=== PATIENT | male | born 1950 | race Caucasian/White ===

== ENCOUNTER 2017-07-12 12:47 | Inpatient (IN) | payer MEDICARE ==
[2017-07-12] VITALS (7 sets, daily range): BP systolic 104–138; BP diastolic 70–89; PULSE 103–150; RESP 13–24; TEMP 98.2–98.7; O2SAT 96–100
[~2017-07-12 12:47] MED LIST: LIDOCAINE HCL 1% PF 5 ML SYRINGE OTHER ONE; PROPOFOL 200 MG/20 ML AMP IV ONE
[2017-07-12] MEDS ORDERED: IOHEXOL 350 MG/ML 10 ML VIAL (for RAD DIAG) IVCONTRAST ONE (12:48)
--- NOTE | 2017-07-12 14:00 | PD ---
HPI Chief Complaint: GI Complaint Time Seen by Provider: 13:57 Travel History International Travel<30 days: No Contact w/Intl Traveler<30days: No Traveled to known affect area: No History of Present Illness HPI 67-year-old male presents emergency department at the request of his physician concern for "internal bleeding". Patient states that he has had colonoscopy and endoscopy to evaluate for his anemia and black stools but "nothing was found ". States this occurred 2 months ago. Today's complaining of fatigue, shortness of breath on exertion. Denies fever, chills, chest pain, abdominal pain. Patient does not take any blood thinners. Does not take aspirin. Says he has a history of high blood pressure. Says he has been n.p.o. since lunch yesterday. Denies any other medical issues medication use. He does not take iron daily. PFSH Social History Tobacco Use: No Allergies-Medications (Allergen,Severity, Reaction): Coded Allergies: No Known Allergies (Unverified , 07/12/17) Review of Systems Except as stated in HPI: all other systems reviewed are Neg Physical Exam Narrative GENERAL: WD, WN, fatigued SKIN: Focused skin assessment warm/dry. HEAD: Atraumatic. Normocephalic. EYES: Pupils equal and round. No scleral icterus. No injection or drainage. ENT: No nasal bleeding or discharge. Mucous membranes pink and moist. NECK: Trachea midline. No JVD. CARDIOVASCULAR: Regular rate and rhythm. No murmur appreciated. RESPIRATORY: No accessory muscle use. Clear to auscultation. Breath sounds equal bilaterally. GASTROINTESTINAL: Abdomen soft, non-tender, nondistended. Mild tenderness palpation of the right abdominal region, no masses or organomegaly. MUSCULOSKELETAL: No obvious deformities. No clubbing. No cyanosis. No edema. NEUROLOGICAL: Awake and alert. No obvious cranial nerve deficits. Motor grossly within normal limits. Normal speech. PSYCHIATRIC: Appropriate mood and affect; insight and judgment normal. Data Data Last Documented VS Vital Signs Date Time Temp Pulse Resp B/P (MAP) Pulse Ox O2 Delivery O2 Flow Rate FiO2 07/12/17 18:19 107 17 136/89 (105) 96 Room Air 07/12/17 13:21 98.2 Orders Orders Complete Blood Count With Diff (07/12/17 13:24) Comprehensive Metabolic Panel (07/12/17 13:24) Prothrombin Time / Inr (Pt) (07/12/17 13:24) Act Partial Throm Time (Ptt) (07/12/17 13:24) Ecg Monitoring (07/12/17 13:24) Orthostatic Vital Signs (07/12/17 13:24) Oximetry (07/12/17 13:24) Oxygen Administration (07/12/17 13:24) Iv Access Insert/Monitor (07/12/17 13:24) Type And Screen (07/12/17 13:24) Electrocardiogram (07/12/17 ) Lipase (07/12/17 13:57) Ct Abd/Pel W Iv Contrast(Rout) (07/12/17 ) B-Type Natriuretic Peptide (07/12/17 14:59) Sodium Chloride 0.9% Flush (Ns Flush) (07/12/17 15:00) Iohexol 350 Inj (Omnipaque 350 Inj) (07/12/17 12:48) Ckmb (Isoenzyme) Profile (07/12/17 14:00) Troponin I (07/12/17 14:00) CKMB (07/12/17 14:00) CKMB% (07/12/17 14:00) Sodium Chlor 0.9% 1000 Ml Inj (Ns 1000 M (07/12/17 16:15) Sodium Chlor 0.9% 1000 Ml Inj (Ns 1000 M (07/12/17 16:15) Electrocardiogram (07/12/17 16:21) Hgb & Hct (07/12/17 17:23) Red Blood Cells (Rbc) (07/12/17 18:01) Blood Product Administration (07/12/17 18:01) Sodium Chlor 0.9% 250 Ml Inj (Ns 250 Ml (07/12/17 18:15) Consult Gastroenterology (07/12/17 ) Pantoprazole Inj (Protonix Inj) (07/12/17 18:15) (Hub Use Only)Inp Phy Cons/Ref (07/12/17 ) Admit Order (Ed Use Only) (07/12/17 18:47) Labs Laboratory Tests Test 07/12/17 14:00 07/12/17 17:32 White Blood Count 9.6 TH/MM3 Red Blood Count 3.26 MIL/MM3 Hemoglobin 9.9 GM/DL 6.5 GM/DL Hematocrit 27.6 % 18.2 % Mean Corpuscular Volume 84.8 FL Mean Corpuscular Hemoglobin 30.2 PG Mean Corpuscular Hemoglobin Concent 35.7 % Red Cell Distribution Width 13.1 % Platelet Count 249 TH/MM3 Mean Platelet Volume 9.6 FL Neutrophils (%) (Auto) 68.6 % Lymphocytes (%) (Auto) 24.4 % Monocytes (%) (Auto) 5.8 % Eosinophils (%) (Auto) 0.4 % Basophils (%) (Auto) 0.8 % Neutrophils # (Auto) 6.6 TH/MM3 Lymphocytes # (Auto) 2.3 TH/MM3 Monocytes # (Auto) 0.6 TH/MM3 Eosinophils # (Auto) 0.0 TH/MM3 Basophils # (Auto) 0.1 TH/MM3 CBC Comment DIFF FINAL Differential Comment Prothrombin Time 11.6 SEC Prothromb Time International Ratio 1.1 RATIO Activated Partial Thromboplast Time 34.7 SEC Blood Urea Nitrogen 38 MG/DL Creatinine 1.26 MG/DL Random Glucose 146 MG/DL Total Protein 7.1 GM/DL Albumin 3.7 GM/DL Calcium Level 8.0 MG/DL Alkaline Phosphatase 42 U/L Aspartate Amino Transf (AST/SGOT) 15 U/L Alanine Aminotransferase (ALT/SGPT) 16 U/L Total Bilirubin 0.3 MG/DL Sodium Level 139 MEQ/L Potassium Level 4.5 MEQ/L Chloride Level 105 MEQ/L Carbon Dioxide Level 24.9 MEQ/L Anion Gap 9 MEQ/L Estimat Glomerular Filtration Rate 57 ML/MIN Total Creatine Kinase 108 U/L Creatine Kinase MB 1.4 NG/ML Troponin I LESS THAN 0.02 NG/ML B-Type Natriuretic Peptide 4 PG/ML Lipase 110 U/L MDM Medical Decision Making Medical Screen Exam Complete: Yes Emergency Medical Condition: Yes Differential Diagnosis symptomatic anemia, NSTEMI, unstable angina Narrative Course 67-year-old male presents emergency department at the request of his physician concern for "internal bleeding". Patient states that he has had colonoscopy and endoscopy to evaluate for his anemia and black stools but "nothing was found ". States this occurred 2 months ago. Today's complaining of fatigue, shortness of breath on exertion. Denies fever, chills, chest pain, abdominal pain. Patient does not take any blood thinners. Does not take aspirin. Says he has a history of high blood pressure. Says he has been n.p.o. since lunch yesterday. Denies any other medical issues medication use. He does not take iron daily. Patient denies history of cardiac or pulmonary issues. Patient was placed on hypertension medications approximately 8 years ago for mild hypertension. Vital signs HR 110, BP 136/86, SaO2 98.2 RA Physical exam findings demonstrate a WD, WN 67y male demonstrating SOB with exertion. Abdomen- soft, tender to the right abdomen without rebound tenderness or masses. No CVA tenderness. Last Impressions Abdomen/Pelvis CT 07/12/17 0000 Signed Impressions: Service Date/Time: , July 12, 2017 15:08 - CONCLUSION: 1. A few subcentimeter benign renal cyst. 2. Otherwise, unremarkable exam for patient's age. Renny Egan MD Patient's labs brought from home from May 14, 2017 show H&H 9.5/28.2, RBC 3.21. 1615 Orthostatics positive- CLEM Caraballo witnessed a tachycardic rate (156) upon pt standing and brought to my attention immediately, 2L NS IVF initiated. Will repeat H&H after IVF and determine need for transfusion. Repeat EKG shows sinus tachycardia rate of 104. Dr. العلي was also notified and he evaluated the patient. After discussing the possibility of transfusions, pt was rather reluctant to allow this. Advised that he should reconsider but that we would evaluated further once repeat labs returned. Initial H&H 9.9/27.6. after 2L IVF 6.5/18.2. 2U PRBCs initiated. Pt agreed to transfusion after discussing risks vs benefits. Dr. العلي discussed with Dr. Delgadillo and is currently evaluating patient in the ED. He believes that the problem may be in the upper GI portion as he had an EGD and colonoscopy 2 months ago. Plan to have an EGD in the morning, per Dr. Delgadillo. Pt to be admitted for symptomatic anemia to Dr. Barroso. [facility] Point of Care Internal Pos. & Neg. Controls: Passed Fecal Specimen Occult Blood: Positive Diagnosis Primary Impression: Symptomatic anemia Admitting Information Admitting Physician Requests: Admit Condition: Stable Oneyda Leal Jul 12, 2017 14:00
[2017-07-12 14:23] LABS: AUTOMATED NEUTROPHIL # 6.6 TH/MM3 (1.8-7.7); BASOPHIL # 0.1 TH/MM3 (0-0.2); BASOPHIL % 0.8 % (0.0-2.0); EOSINOPHIL % 0.4 % (0.0-4.0); HEMATOCRIT 27.6 % (39.0-51.0); HEMOGLOBIN 9.9 GM/DL (13.0-17.0); LYMPH % 24.4 % (9.0-44.0); LYMPHOCYTE # 2.3 TH/MM3 (1.0-4.8); MEAN CELL VOLUME 84.8 FL (80.0-100.0); MEAN CORPUSCULAR HEMOGLOBIN 30.2 PG (27.0-34.0); MEAN CORPUSCULAR HGB CONC 35.7 % (32.0-36.0); MEAN PLATELET VOLUME 9.6 FL (7.0-11.0); MONO % 5.8 % (0.0-8.0); MONOCYTE # 0.6 TH/MM3 (0-0.9); NEUT % 68.6 % (16.0-70.0); PLATELET COUNT 249 TH/MM3 (150-450); RED BLOOD COUNT 3.26 MIL/MM3 (4.50-5.90); RED CELL DISTRIBUTION WIDTH 13.1 % (11.6-17.2); WHITE BLOOD COUNT 9.6 TH/MM3 (4.0-11.0)
[2017-07-12 14:33] LABS: INTERNATIONAL NORMALIZED RATIO 1.1 RATIO; PROTHROMBIN TIME - PATIENT 11.6 SEC (9.8-11.6)
[2017-07-12 14:41] LABS: ALBUMIN 3.7 GM/DL (3.4-5.0); ALT (GPT) 16 U/L (12-78); AST (GOT) 15 U/L (15-37); BICARBONATE 24.9 MEQ/L (21.0-32.0); BLOOD UREA NITROGEN 38 MG/DL (7-18); CHLORIDE 105 MEQ/L (98-107); CREATININE 1.26 MG/DL (0.60-1.30); GLOMERULAR FILTRATION RATE 57 ML/MIN (>89); GLUCOSE,RANDOM 146 MG/DL (74-106); SODIUM (NA) 139 MEQ/L (136-145)
[2017-07-12 14:43] LABS: ALKALINE PHOSPHATASE 42 U/L (45-117); TOTAL BILIRUBIN ADULT 0.3 MG/DL (0.2-1.0); TOTAL PROTEIN 7.1 GM/DL (6.4-8.2)
[2017-07-12] MEDS ORDERED: SODIUM CHLORIDE 0.9% FLUSH 10 ML FLUSH IVF PRN (15:00)
--- NOTE | 2017-07-12 15:31 | RADRPT ---
EXAM DATE/TIME: 07/12/2017 15:08 [facility] COMPARISON: No previous studies available for comparison. INDICATIONS : History of GI bleed and anemia. IV CONTRAST: 95 cc Omnipaque 350 (iohexol) IV ORAL CONTRAST: No oral contrast ingested. RADIATION DOSE: 8.45 CTDIvol (mGy) MEDICAL HISTORY : None SURGICAL HISTORY : None. ENCOUNTER: Initial ACUITY: 1 day PAIN SCALE: 0/10 LOCATION: abdomen TECHNIQUE: Volumetric scanning of the abdomen and pelvis was performed. Using automated exposure control and ad justment of the mA and/or kV according to patient size, radiation dose was kept as low as reasonably achievable to obtain optimal diagnostic quality images. DICOM format image data is available electro nically for review and comparison. FINDINGS: LOWER LUNGS: Minimal reticulonodular infiltrate right lung base. Left lung base is clear. LIVER: Homogeneous density without lesion. There is no dilation of the biliary tree. No calcified gallston es. SPLEEN: Normal size without lesion. PANCREAS: Within normal limits. KIDNEYS: Normal in size and shape. There is no mass, stone or hydronephrosis. A few subcentimeter benign cyst s in the right kidney. ADRENAL GLANDS: Within normal limits. VASCULAR: There is no aortic aneurysm. BOWEL/MESENTERY: The stomach, small bowel, and colon demonstrate no acute abnormality. There is no free intraperitone al air or fluid. The appendix is unremarkable. There is stool throughout the colon. No inflammatory c hanges. ABDOMINAL WALL: Within normal limits. RETROPERITONEUM: There is no lymphadenopathy. BLADDER: No wall thickening or mass. REPRODUCTIVE: The prostate gland measures 5.6 cm. INGUINAL: There is no lymphadenopathy or hernia. MUSCULOSKELETAL: Within normal limits for patient age. CONCLUSION: 1. A few subcentimeter benign renal cyst. 2. Otherwise, unremarkable exam for patient's age. Renny Egan MD on July 12, 2017 at 15:27 Board Certified Radiologist. This report was verified electronically.
[2017-07-12 16:12] LABS: TROPONIN I LESS THAN 0.02 NG/ML (0.02-0.05)
[2017-07-12] MEDS ORDERED: SODIUM CHLOR 0.9% 1000 ML INJ 1,000 ML IV ONE ×2 (16:15)
--- NOTE | 2017-07-12 16:19 | PD ---
Data Data Last Documented VS Vital Signs Date Time Temp Pulse Resp B/P (MAP) Pulse Ox O2 Delivery O2 Flow Rate FiO2 07/12/17 18:19 107 17 136/89 (105) 96 Room Air 07/12/17 13:21 98.2 Orders Orders Complete Blood Count With Diff (07/12/17 13:24) Comprehensive Metabolic Panel (07/12/17 13:24) Prothrombin Time / Inr (Pt) (07/12/17 13:24) Act Partial Throm Time (Ptt) (07/12/17 13:24) Ecg Monitoring (07/12/17 13:24) Orthostatic Vital Signs (07/12/17 13:24) Oximetry (07/12/17 13:24) Oxygen Administration (07/12/17 13:24) Iv Access Insert/Monitor (07/12/17 13:24) Type And Screen (07/12/17 13:24) Electrocardiogram (07/12/17 ) Lipase (07/12/17 13:57) Ct Abd/Pel W Iv Contrast(Rout) (07/12/17 ) B-Type Natriuretic Peptide (07/12/17 14:59) Sodium Chloride 0.9% Flush (Ns Flush) (07/12/17 15:00) Iohexol 350 Inj (Omnipaque 350 Inj) (07/12/17 12:48) Ckmb (Isoenzyme) Profile (07/12/17 14:00) Troponin I (07/12/17 14:00) CKMB (07/12/17 14:00) CKMB% (07/12/17 14:00) Sodium Chlor 0.9% 1000 Ml Inj (Ns 1000 M (07/12/17 16:15) Sodium Chlor 0.9% 1000 Ml Inj (Ns 1000 M (07/12/17 16:15) Electrocardiogram (07/12/17 16:21) Hgb & Hct (07/12/17 17:23) Red Blood Cells (Rbc) (07/12/17 18:01) Blood Product Administration (07/12/17 18:01) Sodium Chlor 0.9% 250 Ml Inj (Ns 250 Ml (07/12/17 18:15) Consult Gastroenterology (07/12/17 ) Pantoprazole Inj (Protonix Inj) (07/12/17 18:15) (Hub Use Only)Inp Phy Cons/Ref (07/12/17 ) Admit Order (Ed Use Only) (07/12/17 18:47) Labs Laboratory Tests Test 07/12/17 14:00 07/12/17 17:32 White Blood Count 9.6 TH/MM3 Red Blood Count 3.26 MIL/MM3 Hemoglobin 9.9 GM/DL 6.5 GM/DL Hematocrit 27.6 % 18.2 % Mean Corpuscular Volume 84.8 FL Mean Corpuscular Hemoglobin 30.2 PG Mean Corpuscular Hemoglobin Concent 35.7 % Red Cell Distribution Width 13.1 % Platelet Count 249 TH/MM3 Mean Platelet Volume 9.6 FL Neutrophils (%) (Auto) 68.6 % Lymphocytes (%) (Auto) 24.4 % Monocytes (%) (Auto) 5.8 % Eosinophils (%) (Auto) 0.4 % Basophils (%) (Auto) 0.8 % Neutrophils # (Auto) 6.6 TH/MM3 Lymphocytes # (Auto) 2.3 TH/MM3 Monocytes # (Auto) 0.6 TH/MM3 Eosinophils # (Auto) 0.0 TH/MM3 Basophils # (Auto) 0.1 TH/MM3 CBC Comment DIFF FINAL Differential Comment Prothrombin Time 11.6 SEC Prothromb Time International Ratio 1.1 RATIO Activated Partial Thromboplast Time 34.7 SEC Blood Urea Nitrogen 38 MG/DL Creatinine 1.26 MG/DL Random Glucose 146 MG/DL Total Protein 7.1 GM/DL Albumin 3.7 GM/DL Calcium Level 8.0 MG/DL Alkaline Phosphatase 42 U/L Aspartate Amino Transf (AST/SGOT) 15 U/L Alanine Aminotransferase (ALT/SGPT) 16 U/L Total Bilirubin 0.3 MG/DL Sodium Level 139 MEQ/L Potassium Level 4.5 MEQ/L Chloride Level 105 MEQ/L Carbon Dioxide Level 24.9 MEQ/L Anion Gap 9 MEQ/L Estimat Glomerular Filtration Rate 57 ML/MIN Total Creatine Kinase 108 U/L Creatine Kinase MB 1.4 NG/ML Troponin I LESS THAN 0.02 NG/ML B-Type Natriuretic Peptide 4 PG/ML Lipase 110 U/L MDM Supervised Visit with PATEL: Yes Narrative Course I, Dr. العلي, have reviewed the advance practice practitioner's documentation and am in agreement, met with the patient face to face, made the diagnosis, and the medical decision making was done by me. *My assessment and Findings: Patient seen and examined by me in addition to Oneyda Elvis. Patient fairly tachycardic and when he stood to go use the bathroom became even more tachycardic into the 150s, this is orthostatic hypotension, had significant melena from his rectum according to MsLiliam Leal and his initial H&H was 9.7. Assuming acute contraction the patient was bolused 2 L normal saline and his H&H was repeated and is now 6.5. After discussion with him I highly recommended to him to have blood transfusion and he is agreeable. 2 units PRBCs been ordered, he was discussed by me with Dr. Delgadillo who is planning procedure in the morning. Recommends Protonix. Discussed with Dr. Graham for admission. Diagnosis Primary Impression: Symptomatic anemia Admitting Information Admitting Physician Requests: Admit Scripts Pantoprazole (Protonix) 40 Mg Tab 40 MG PO BID for Ulcer Prevention, #60 TAB 3 Refills Prov: Eben Graham MD 07/14/17 Condition: Evangelista José MD Jul 12, 2017 16:19
[2017-07-12 18:01] LABS: HEMATOCRIT 18.2 % (39.0-51.0); HEMOGLOBIN 6.5 GM/DL (13.0-17.0)
[2017-07-12] MEDS ORDERED: PANTOPRAZOLE SODIUM 40 MG VIAL IV PUSH ONE (18:15)
[2017-07-12] MEDS ORDERED: SODIUM CHLOR 0.9% 250 ML INJ 250 ML IV ONE (18:15)
--- NOTE | 2017-07-12 19:14 | HHI.HP ---
HPI Service [facility] Hospitalists Primary Care Physician Glenn Coronel, DO Admission Diagnosis symptomatic anemia Chief Complaint: sob/black stool Travel History International Travel<30 Days: No Contact w/Intl Traveler <30 Da: No Traveled to Known Affected Are: No History of Present Illness Pt is 67 yo male with htn presenting with black stool, dizziness, sob with exertion. 2 months ago he had black stool and had egd/colonoscopy with advanced GI. Pt says no bleeding was found and he was given omeprazole with resolution of black stool in about 3 days. he stopped the medication. He now has more black stool, no abdomen pain, but dizzy and sob with exertion. He passed out 2 months ago and today nearly passed out again. he is very symptomatic and gets very tachycardic and dizzy just walking to [place]. Denies nsaid use and no heavy etoh. Review of Systems Other sob/dizzy black stool Past Family Social History Past Medical History htn egd/colonoscopy 2m ago for melena Reported Medications lisinipril 10mg po daily otc iron Allergies: Coded Allergies: No Known Allergies (Unverified , 07/12/17) Family History nc Social History rare etoh no tob Physical Exam Vital Signs heart reg lung cta abd s/nt/nabs ext no edema no bruit Vital Signs Date Time Temp Pulse Resp B/P (MAP) Pulse Ox O2 Delivery O2 Flow Rate FiO2 07/12/17 18:19 107 17 136/89 (105) 96 Room Air 07/12/17 16:17 150 24 138/84 (102) 100 Room Air 07/12/17 14:25 98 07/12/17 14:25 98 Room Air 07/12/17 13:21 98.2 138 20 136/86 (103) 100 Laboratory Laboratory Tests Test 07/12/17 14:00 07/12/17 17:32 White Blood Count 9.6 Red Blood Count 3.26 Hemoglobin 9.9 6.5 Hematocrit 27.6 18.2 Mean Corpuscular Volume 84.8 Mean Corpuscular Hemoglobin 30.2 Mean Corpuscular Hemoglobin Concent 35.7 Red Cell Distribution Width 13.1 Platelet Count 249 Mean Platelet Volume 9.6 Neutrophils (%) (Auto) 68.6 Lymphocytes (%) (Auto) 24.4 Monocytes (%) (Auto) 5.8 Eosinophils (%) (Auto) 0.4 Basophils (%) (Auto) 0.8 Neutrophils # (Auto) 6.6 Lymphocytes # (Auto) 2.3 Monocytes # (Auto) 0.6 Eosinophils # (Auto) 0.0 Basophils # (Auto) 0.1 CBC Comment DIFF FINAL Differential Comment Prothrombin Time 11.6 Prothromb Time International Ratio 1.1 Activated Partial Thromboplast Time 34.7 Blood Urea Nitrogen 38 Creatinine 1.26 Random Glucose 146 Total Protein 7.1 Albumin 3.7 Calcium Level 8.0 Alkaline Phosphatase 42 Aspartate Amino Transf (AST/SGOT) 15 Alanine Aminotransferase (ALT/SGPT) 16 Total Bilirubin 0.3 Sodium Level 139 Potassium Level 4.5 Chloride Level 105 Carbon Dioxide Level 24.9 Anion Gap 9 Estimat Glomerular Filtration Rate 57 Total Creatine Kinase 108 Creatine Kinase MB 1.4 Troponin I LESS THAN 0.02 B-Type Natriuretic Peptide 4 Lipase 110 Result Diagram: 07/12/17 1732 07/12/17 1400 Caprini VTE Risk Assessment Caprini VTE Risk Assessment: Mod/High Risk (score >= 2) Caprini Risk Assessment Model Point Value = 1 Point Value = 2 Point Value = 3 Point Value = 5 Age 41-60 Minor surgery BMI > 25 kg/m2 Swollen legs Varicose veins or History of unexplained or recurrent spontaneous Oral contraceptives or hormone replacement Sepsis (< 1 month) Serious lung disease, including pneumonia (< 1 month) Abnormal pulmonary function Acute myocardial infarction Congestive heart failure (< 1 month) History of inflammatory bowel disease Medical patient at bed rest Age 61-74 Arthroscopic surgery Major open surgery (> 45 min) Laparoscopic surgery (> 45 min) Malignancy Confined to bed (> 72 hours) Immobilizing plaster cast Central venous access Age >= 75 History of VTE Family history of VTE Factor V Leiden Prothrombin [id number] Lupus anticoagulant Anticardiolipin antibodies Elevated serum homocysteine Heparin-induced thrombocytopenia Other congenital or acquired thrombophilia Stroke (< 1 month) Elective arthroplasty Hip, pelvis, or leg fracture Acute spinal cord injury (< 1 month) Prophylaxis Regimen Total Risk Factor Score Risk Level Prophylaxis Regimen 0-1 Low Early ambulation 2 Moderate Order ONE of the following: *Sequential Compression Device (SCD) *Heparin 5000 units SQ BID 3-4 Higher Order ONE of the following medications: *Heparin 5000 units SQ TID *Enoxaparin/Lovenox 40 mg SQ daily (WT < 150 kg, CrCl > 30 mL/min) *Enoxaparin/Lovenox 30 mg SQ daily (WT < 150 kg, CrCl > 10-29 mL/min) *Enoxaparin/Lovenox 30 mg SQ BID (WT < 150 kg, CrCl > 30 mL/min) AND/OR *Sequential Compression Device (SCD) 5 or more Highest Order ONE of the following medications: *Heparin 5000 units SQ TID (Preferred with Epidurals) *Enoxaparin/Lovenox 40 mg SQ daily (WT < 150 kg, CrCl > 30 mL/min) *Enoxaparin/Lovenox 30 mg SQ daily (WT < 150 kg, CrCl > 10-29 mL/min) *Enoxaparin/Lovenox 30 mg SQ BID (WT < 150 kg, CrCl > 30 mL/min) AND *Sequential Compression Device (SCD) Assessment and Plan Problem List: (1) Acute GI bleeding ICD Codes: K92.2 - Gastrointestinal hemorrhage, unspecified Status: Acute Plan: 1. acute gib with symptomatic blood loss anemia. melena concern for ugib hgb 6 severe sinus tach, dizziness, meier, near syncope with exertion egd/colonoscopy 2m ago no clear etiology denies nsaids or etoh transfuse 2 units blood keep on tele oob with assist only scd's ppi GI consulted. EGD planned. hold bp med (2) Symptomatic anemia ICD Codes: D64.9 - Anemia, unspecified Status: Acute (3) Acute blood loss anemia ICD Codes: D62 - Acute posthemorrhagic anemia Status: Acute (4) HTN (hypertension) ICD Codes: I10 - Essential (primary) hypertension Status: Chronic Eben Graham MD Jul 12, 2017 19:14
--- NOTE | 2017-07-12 23:49 | EKG ---
Date Performed: 07/12/2017 Time Performed: 16:21:42 PTAGE: 67 years EKG: SINUS TACHYCARDIA NONSPECIFIC T-WAVE ABNORMALITY ABNORMAL RHYTHM ECG INTERPRETATION BASED O N A DEFAULT AGE OF 40 YEARS Since the prior tracing, there has been no significant change DOCTOR: Delta Haney Interpretating Date/Time 07/12/2017 23:49:21
[2017-07-13] VITALS (17 sets, daily range): BP systolic 113–148; BP diastolic 67–91; PULSE 74–93; RESP 16–20; TEMP 98.4–98.9; O2SAT 96–100
--- NOTE | 2017-07-13 00:02 | EKG ---
Date Performed: 07/12/2017 Time Performed: 14:18:09 PTAGE: 67 years EKG: ATRIAL FLUTTER/TACHYCARDIA WITH RAPID VENTRICULAR RESPONSE NONSPECIFIC T-WAVE ABNORMALITY A BNORMAL RHYTHM ECG NO PREVIOUS TRACING DOCTOR: Delta Haney Interpretating Date/Time 07/13/2017 00:00:13
--- NOTE | 2017-07-13 08:05 | PD.CONS ---
HPI History of Present Illness This is a 67 year old male here with symptoms of dizziness, feeling of almost passing out when standing up. Notes a EGD and Colonoscopy 2 months ago with significant findings. Patient came to the hospital on 07/12/17 for further evaluation. Currently patient denies any nausea, vomiting, fever, no abdominal pain. Patient has no history of family colon cancer. Patient is a nonsmoker, occasional social EtOH. According to the record patient also described fatigue and shortness of breath, takes no blood thinners. Hemoglobin on admission 9.9 rechecked 3 hours later and was found to be 6.5; patient received 2 units of packed RBCs and symptoms have resolved for now. (Carolina Ricardo) PFSH Past Medical History Positive Hemoccult Anemia Benign renal cyst Past Surgical History EGD colonoscopy 2 months ago (Carolina Ricardo) Coded Allergies: No Known Allergies (Unverified , 07/12/17) Medications Administered Medications Medications (Trade) Dose Ordered Sig/Elijah Route PRN Reason Start Time Stop Time Status Last Admin Dose Admin Sodium Chloride 250 ml @ 15 mls/hr ONCE ONCE IV 07/12/17 18:15 07/13/17 10:54 07/12/17 22:24 Family History No history of colon cancer Social History Patient is Nonsmoker Occasional EtOH No illicit drugs (Carolina Ricardo) Review of Systems Constitutional: COMPLAINS OF: Fatigue (on admission), Dizziness (now resolved) (Carolina Ricardo) GI Exam Vitals I&O Vital Signs Date Time Temp Pulse Resp B/P (MAP) Pulse Ox O2 Delivery O2 Flow Rate FiO2 07/13/17 04:33 74 19 132/80 96 07/13/17 04:00 79 19 114/67 (83) 100 Room Air 07/13/17 01:45 98.7 85 19 131/83 100 07/13/17 01:28 98.9 87 20 113/71 98 07/13/17 01:06 89 20 117/69 99 07/13/17 00:04 90 20 128/81 (97) 99 Room Air 07/12/17 22:35 98.7 103 19 127/86 98 07/12/17 22:02 98.7 108 20 104/70 100 3/8/18 19:32 113 13 124/89 (101) 99 Room Air 07/12/17 18:19 107 17 136/89 (105) 96 Room Air 07/12/17 16:17 150 24 138/84 (102) 100 Room Air 07/12/17 14:25 98 07/12/17 14:25 98 Room Air 07/12/17 13:21 98.2 138 20 136/86 (103) 100 I/O 07/12/17 07/12/17 07/12/17 07/13/17 07/13/17 07/13/17 07:00 15:00 23:00 07:00 15:00 23:00 Intake Total 2010 ml 850 ml Balance 2010 ml 850 ml Intake IV Total 2000 ml Packed Cells 800 ml Blood Product IV Normal Saline Flush 10 ml 50 ml Imaging Last Impressions Abdomen/Pelvis CT 07/12/17 0000 Signed Impressions: Service Date/Time: July 15:08 - CONCLUSION: 1. A few subcentimeter benign renal cyst. 2. Otherwise, unremarkable exam for patient's age. Renny Egan MD Laboratory Test 07/12/17 14:00 07/12/17 17:32 White Blood Count 9.6 TH/MM3 Red Blood Count 3.26 MIL/MM3 Hemoglobin 9.9 GM/DL 6.5 GM/DL Hematocrit 27.6 % 18.2 % Mean Corpuscular Volume 84.8 FL Mean Corpuscular Hemoglobin 30.2 PG Mean Corpuscular Hemoglobin Concent 35.7 % Red Cell Distribution Width 13.1 % Platelet Count 249 TH/MM3 Mean Platelet Volume 9.6 FL Neutrophils (%) (Auto) 68.6 % Lymphocytes (%) (Auto) 24.4 % Monocytes (%) (Auto) 5.8 % Eosinophils (%) (Auto) 0.4 % Basophils (%) (Auto) 0.8 % Neutrophils # (Auto) 6.6 TH/MM3 Lymphocytes # (Auto) 2.3 TH/MM3 Monocytes # (Auto) 0.6 TH/MM3 Eosinophils # (Auto) 0.0 TH/MM3 Basophils # (Auto) 0.1 TH/MM3 CBC Comment DIFF FINAL Differential Comment Prothrombin Time 11.6 SEC Prothromb Time International Ratio 1.1 RATIO Activated Partial Thromboplast Time 34.7 SEC Blood Urea Nitrogen 38 MG/DL Creatinine 1.26 MG/DL Random Glucose 146 MG/DL Total Protein 7.1 GM/DL Albumin 3.7 GM/DL Calcium Level 8.0 MG/DL Alkaline Phosphatase 42 U/L Aspartate Amino Transf (AST/SGOT) 15 U/L Alanine Aminotransferase (ALT/SGPT) 16 U/L Total Bilirubin 0.3 MG/DL Sodium Level 139 MEQ/L Potassium Level 4.5 MEQ/L Chloride Level 105 MEQ/L Carbon Dioxide Level 24.9 MEQ/L Anion Gap 9 MEQ/L Estimat Glomerular Filtration Rate 57 ML/MIN Total Creatine Kinase 108 U/L Creatine Kinase MB 1.4 NG/ML Troponin I LESS THAN 0.02 NG/ML B-Type Natriuretic Peptide 4 PG/ML Lipase 110 U/L Physical Examination HEENT: Pupils round and reactive to light; normocephalic; atraumatic; no jaundice. Oral cavity clean, obese NECK: Neck is supple, CHEST: Chest is clear without wheezes or rhonchi CARDIAC: Regular rate and rhythm, mild split S2 ABDOMEN: Soft, nondistended, nontender; no hepatosplenomegaly; bowel sounds are present in all four quadrants. EXTREMITIES: No clubbing, cyanosis, or edema. SKIN: Pale, no rash; no jaundice. GLUE MOUNTER OPERATOR: No focal deficits; alert and oriented times three. (Carolina Ricardo) Assessment and Plan Assessment: (1) Symptomatic anemia ICD Codes: D64.9 - Anemia, unspecified Status: Acute (2) Acute blood loss anemia ICD Codes: D62 - Acute posthemorrhagic anemia Status: Acute (3) Acute GI bleeding ICD Codes: K92.2 - Gastrointestinal hemorrhage, unspecified Status: Acute Plan Symptoms of dizziness, feeling of near syncope, now resolved after receiving 2 units of blood EGD colonoscopy done 2 months ago according to patient and the record without significant findings Symptomatic anemia is under control hemoglobin is pending Plan EGD this a.m. Consent Nothing by mouth at midnight on 07/13/17 PPI Monitor labs On after for any acute hemorrhage Supportive care This patient was seen by myself and Dr. Delgadillo, note written on his behalf (Carolina Ricardo) Physician Comments Seen and examined, plan as above. Procedure explained, will proceed with EGD and if that is negative Video Capsule Endoscopy as outpatient. (Diana Delgadillo MD) Craolina Ricardo Jul 13, 2017 08:05 Diana Delgadillo MD Jul 13, 2017 08:50
[2017-07-13] MEDS: PANTOPRAZOLE SODIUM 40 MG VIAL IV PUSH SCH ×2 (09:10→21:02)
[2017-07-13 09:55] LABS: AUTOMATED NEUTROPHIL # 3.6 TH/MM3 (1.8-7.7); BASOPHIL % 0.7 % (0.0-2.0); EOSINOPHIL # 0.1 TH/MM3 (0-0.4); EOSINOPHIL % 1.3 % (0.0-4.0); HEMATOCRIT 25.2 % (39.0-51.0); HEMOGLOBIN 9.2 GM/DL (13.0-17.0); LYMPHOCYTE # 2.1 TH/MM3 (1.0-4.8); MEAN CELL VOLUME 84.2 FL (80.0-100.0); MEAN CORPUSCULAR HEMOGLOBIN 30.8 PG (27.0-34.0); MEAN PLATELET VOLUME 9.3 FL (7.0-11.0); MONO % 8.2 % (0.0-8.0); MONOCYTE # 0.5 TH/MM3 (0-0.9); NEUT % 56.8 % (16.0-70.0); PLATELET COUNT 137 TH/MM3 (150-450); RED CELL DISTRIBUTION WIDTH 13.5 % (11.6-17.2); WHITE BLOOD COUNT 6.3 TH/MM3 (4.0-11.0)
[2017-07-13 09:57] LABS: MEAN CORPUSCULAR HGB CONC 36.6 % (32.0-36.0)
--- NOTE | 2017-07-13 10:32 | HHI.PR ---
Subjective Remarks Pt has not had any further black stools since prior to admission He denies any abdominal pain, N/V, reflux or dysphagia Objective Vitals Vital Signs Date Time Temp Pulse Resp B/P (MAP) Pulse Ox O2 Delivery O2 Flow Rate FiO2 07/13/17 10:03 92 18 126/72 (90) 97 07/13/17 08:30 81 18 129/80 (96) 100 Room Air 07/13/17 07:30 76 17 120/82 (95) 98 Room Air 07/13/17 04:33 74 19 132/80 96 07/13/17 04:00 79 19 114/67 (83) 100 Room Air 07/13/17 01:45 98.7 85 19 131/83 100 07/13/17 01:28 98.9 87 20 113/71 98 07/13/17 01:06 89 20 117/69 99 07/13/17 00:04 90 20 128/81 (97) 99 Room Air 07/12/17 22:35 98.7 103 19 127/86 98 07/12/17 22:02 98.7 108 20 104/70 100 07/12/17 19:32 113 13 124/89 (101) 99 Room Air 07/12/17 18:19 107 17 136/89 (105) 96 Room Air 07/12/17 16:17 150 24 138/84 (102) 100 Room Air 07/12/17 14:25 98 07/12/17 14:25 98 Room Air 07/12/17 13:21 98.2 138 20 136/86 (103) 100 Result Diagram: 07/13/17 0910 07/12/17 1400 Other Results Laboratory Tests Test 07/12/17 14:00 07/12/17 17:32 07/13/17 09:10 White Blood Count 9.6 TH/MM3 6.3 TH/MM3 Red Blood Count 3.26 MIL/MM3 3.00 MIL/MM3 Hemoglobin 9.9 GM/DL 6.5 GM/DL 9.2 GM/DL Hematocrit 27.6 % 18.2 % 25.2 % Mean Corpuscular Volume 84.8 FL 84.2 FL Mean Corpuscular Hemoglobin 30.2 PG 30.8 PG Mean Corpuscular Hemoglobin Concent 35.7 % 36.6 % Red Cell Distribution Width 13.1 % 13.5 % Platelet Count 249 TH/MM3 137 TH/MM3 Mean Platelet Volume 9.6 FL 9.3 FL Neutrophils (%) (Auto) 68.6 % 56.8 % Lymphocytes (%) (Auto) 24.4 % 33.0 % Monocytes (%) (Auto) 5.8 % 8.2 % Eosinophils (%) (Auto) 0.4 % 1.3 % Basophils (%) (Auto) 0.8 % 0.7 % Neutrophils # (Auto) 6.6 TH/MM3 3.6 TH/MM3 Lymphocytes # (Auto) 2.3 TH/MM3 2.1 TH/MM3 Monocytes # (Auto) 0.6 TH/MM3 0.5 TH/MM3 Eosinophils # (Auto) 0.0 TH/MM3 0.1 TH/MM3 Basophils # (Auto) 0.1 TH/MM3 0.0 TH/MM3 CBC Comment DIFF FINAL AUTO DIFF Differential Comment Prothrombin Time 11.6 SEC Prothromb Time International Ratio 1.1 RATIO Activated Partial Thromboplast Time 34.7 SEC Blood Urea Nitrogen 38 MG/DL Creatinine 1.26 MG/DL Random Glucose 146 MG/DL Total Protein 7.1 GM/DL Albumin 3.7 GM/DL Calcium Level 8.0 MG/DL Alkaline Phosphatase 42 U/L Aspartate Amino Transf (AST/SGOT) 15 U/L Alanine Aminotransferase (ALT/SGPT) 16 U/L Total Bilirubin 0.3 MG/DL Sodium Level 139 MEQ/L Potassium Level 4.5 MEQ/L Chloride Level 105 MEQ/L Carbon Dioxide Level 24.9 MEQ/L Anion Gap 9 MEQ/L Estimat Glomerular Filtration Rate 57 ML/MIN Total Creatine Kinase 108 U/L Creatine Kinase MB 1.4 NG/ML Troponin I LESS THAN 0.02 NG/ML B-Type Natriuretic Peptide 4 PG/ML Lipase 110 U/L Imaging Last Impressions Abdomen/Pelvis CT 07/12/17 0000 Signed Impressions: Service Date/Time: July 15:08 - CONCLUSION: 1. A few subcentimeter benign renal cyst. 2. Otherwise, unremarkable exam for patient's age. Renny Egan MD Objective Remarks General: NAD, AAOx3 Chest: CTA Cardiac: Regular Abd: +BS, soft ND/NT Ext: No edema A/P Problem List: (1) Acute GI bleeding ICD Codes: K92.2 - Gastrointestinal hemorrhage, unspecified Status: Acute Plan: - Acute GIB with symptomatic blood loss anemia and reported melena, concern for upper GIB - Pt had previously undergone evaluation with EGD/colonoscopy around 2 months ago which was reportedly negative. - His labs at admission noted Hgb 9.9 but pt was symptomatic with severe sinus tachycardia, dizziness, dyspnea on exertion and near syncope. Recheck of the labs 3 hours later, he was found to have Hgb 6.5 - Pt received 2 units of packed RBCs with improvement in his symptoms - Repeat Hgb today at 9.2 - GI consulted - PPI - Pt planned for EGD today - Pt denies NSAID or EtOH use - Telemetry - OOB with assist only - DVT prophylaxis with SCDs (2) Symptomatic anemia ICD Codes: D64.9 - Anemia, unspecified Status: Acute (3) Acute blood loss anemia ICD Codes: D62 - Acute posthemorrhagic anemia Status: Acute (4) HTN (hypertension) ICD Codes: I10 - Essential (primary) hypertension Status: Chronic Plan: - Home meds on hold - BP stable Assessment and Plan Patient examined. Assessment and plan formulated with Lois Bo PA-C. I agree with the above. duodenal ulcers. clip on visible vessel. ppi liquids . d/c when ok with GI. Lois Bo Jul 13, 2017 10:32 Eben Graham MD Jul 13, 2017 12:12
[2017-07-13 10:48] LABS: OVALOCYTES 1+ (NORMAL); SPHEROCYTES 1+ (NORMAL)
[2017-07-13] MEDS ORDERED: DO NOT ADM ANY ANTICOAGULANT DRUGS PRN (11:24)
--- NOTE | 2017-07-13 11:25 | GIPROC ---
[facility] [address] [facility]. [facility], [address] EGD PROCEDURE REPORT EXAM DATE: 07/13/2017 PATIENT NAME: Leobardo Murphy MR #: [id number] BIRTHDATE: 1950 ATTENDING: Diana Delgadillo MD ORDER #: [id number] ELECTRONIC TRANSACTION IMPLEMENTER: Margie Sheffield and Odessa Miranda STATUS: inpatient INDICATIONS: The patient is a 67 yr old male here for an EGD due to anemia and melena PROCEDURE PERFORMED: EGD w/ control of bleeding EGD w/ biopsy MEDICATIONS: None and Per Anesthesia. TOPICAL ANESTHETIC: none CONSENT: The patient understands the risks and benefits of the procedure and understands that these risks include, but are not limited to: sedation, allergic reaction, infection, perforation and/or bleeding. Alternative means of evaluation and treatment include, among others: physical exam, x-rays, and/or surgical intervention. The patient elects to proceed with this endoscopic procedure. medical equipment was checked for proper function. Hand hygiene and appropriate measures for infection prevention was taken. After the risks, benefits and alternatives of the procedure were thoroughly explained, Informed consent was verified, confirmed and timeout was successfully executed by the treatment team. The patient was anesthetized with topical anesthesia and the Pentax [id number] endoscope was introduced through the mouth and advanced to the second portion of the duodenum. Retroflexion was performed and was normal The gastroscope was then slowly withdrawn and removed. ESOPHAGUS: The mucosa of the esophagus appeared normal. STOMACH: The mucosa of the stomach appeared normal. Multiple biopsies were performed using cold forceps. Sample sent for histology. DUODENUM: Multiple medium sized non-bleeding non-bleeding, irregular shaped and deep ulcers with a visible vessel were found in the duodenal bulb and 1st part duodenum. Complete hemostasis was achieved by placing a single Cook instinct hemoclip on the bleeding site(s). ADVERSE EVENTS: There were no complications. IMPRESSIONS: 1. The esophagus appeared normal 2. The mucosa of the stomach appeared normal; multiple biopsies were performed 3. Multiple medium sized non-bleeding ulcers were found in the duodenal bulb and 1st part duodenum; Complete hemostasis was achieved by placing a single hemoclip on the bleeding site(s) 4. Retroflexion was performed and was normal RECOMMENDATIONS: 1. Await biopsy results. Biopsy results will not be ready for 7-10 days. If you don't hear from us in two weeks, call our office for biopsy results. 2. Continue PPI 3. Avoid NSAIDS PATIENT CONDITION: stable DISPOSITION: Observation REPEAT EXAM: NONE Diana Delgadillo MD eSigned: Diana Delgadillo MD 07/13/2017 11:25 AM cc: PATIENT NAME: Leobardo Murphy MR#: [id number]
[2017-07-13] MEDS ORDERED: LACTATED RINGER'S 1000 ML INJ 1,000 ML ONE (12:30)
[2017-07-13] MEDS ORDERED: ACETAMINOPHEN 325 MG TAB PO PRN (14:15)
[2017-07-13] MEDS ORDERED: ONDANSETRON HCL 4 MG/2 ML VIAL IV PRN (14:15)
[2017-07-14] VITALS (10 sets, daily range): BP systolic 115–124; BP diastolic 73–77; PULSE 74–86; RESP 16–20; TEMP 97.5–98.6; O2SAT 97–98
[2017-07-14 05:47] LABS: HEMATOCRIT 23.6 % (39.0-51.0); HEMOGLOBIN 8.5 GM/DL (13.0-17.0)
[2017-07-14] MEDS: PANTOPRAZOLE SODIUM 40 MG VIAL IV PUSH SCH (08:15)
--- NOTE | 2017-07-14 08:15 | HHI.PR ---
Subjective Remarks black stool and noticed red blood in water "from the black stool" no pain. asking for food. no dizziness Objective Vitals heart reg lung cta abd /snt ext no edema Vital Signs Date Time Temp Pulse Resp B/P (MAP) Pulse Ox O2 Delivery O2 Flow Rate FiO2 07/14/17 06:00 79 07/14/17 05:00 76 07/14/17 04:00 74 07/14/17 04:00 98.1 74 18 115/74 (88) 98 07/14/17 03:00 82 07/14/17 02:00 74 07/14/17 01:00 86 07/14/17 00:00 85 07/14/17 00:00 98.6 85 20 118/76 (90) 98 07/13/17 23:00 89 07/13/17 22:00 90 07/13/17 21:00 93 07/13/17 20:52 96 07/13/17 20:00 Room Air 07/13/17 20:00 87 07/13/17 20:00 98.4 87 20 129/82 (98) 97 07/13/17 15:00 98.7 93 18 148/86 (106) 98 07/13/17 15:00 93 07/13/17 14:00 82 07/13/17 12:45 98.5 78 16 147/91 (109) 98 07/13/17 11:30 97.0 80 18 127/84 (98) 97 07/13/17 10:05 07/13/17 10:03 92 18 126/72 (90) 97 07/13/17 08:30 81 18 129/80 (96) 100 Room Air Result Diagram: 07/14/17 0512 07/12/17 1400 Imaging Last Impressions Abdomen/Pelvis CT 07/12/17 0000 Signed Impressions: Service Date/Time: July 15:08 - CONCLUSION: 1. A few subcentimeter benign renal cyst. 2. Otherwise, unremarkable exam for patient's age. Renny Egan MD A/P Problem List: (1) Acute GI bleeding ICD Codes: K92.2 - Gastrointestinal hemorrhage, unspecified Status: Acute Plan: - Acute GIB with symptomatic blood loss anemia and reported melena, concern for upper GIB - Pt had previously undergone evaluation with EGD/colonoscopy around 2 months ago which was reportedly negative. - His labs at admission noted Hgb 9.9 but pt was symptomatic with severe sinus tachycardia, dizziness, dyspnea on exertion and near syncope. Recheck of the labs 3 hours later, he was found to have Hgb 6.5 - Pt received 2 units of packed RBCs with improvement in his symptoms - Pt denies NSAID or EtOH use -egd on 07/13 shows duodenal ulcers with one having visible vessel s/p clip -overnight denies dizziness or sob. advance diet to soft. ambulate. hgb slight drop. monitor for sx's and tranfuse as needed. notify GI with bleeding. addendum: no further bleeding reported. no symptoms of anemia with ambulation. nurse called and said pt wants to go home. I spoke with Dr Delgadillo who says let him go. d/c home. hgb 8.3. (2) Symptomatic anemia ICD Codes: D64.9 - Anemia, unspecified Status: Acute (3) Acute blood loss anemia ICD Codes: D62 - Acute posthemorrhagic anemia Status: Acute (4) HTN (hypertension) ICD Codes: I10 - Essential (primary) hypertension Status: Chronic Plan: - Home meds on hold - BP stable Eben Graham MD Jul 14, 2017 08:15
[2017-07-14 12:50] LABS: HEMATOCRIT 22.8 % (39.0-51.0); HEMOGLOBIN 8.3 GM/DL (13.0-17.0)
[2017-07-14] MEDS ORDERED: PROT40TA PO (14:15)
--- NOTE | 2017-07-14 14:16 | HHI.DCPOC ---
Discharge Care Plan Diagnosis: (1) Duodenal ulcer (2) Acute GI bleeding (3) Acute blood loss anemia (4) Symptomatic anemia Goals to Promote Your Health * To prevent worsening of your condition and complications * To maintain your health at the optimal level Directions to Meet Your Goals Take your medications as prescribed Follow your dietary instruction Follow activity as directed Keep your appointments as scheduled Take your immunizations and boosters as scheduled If your symptoms worsen call your PCP, if no PCP go to Urgent Care Center or Emergency Room Smoking is Dangerous to Your Health. Avoid second hand smoke Call the 24-hour hour crisis hotline for domestic abuse at Eben Graham MD Jul 14, 2017 14:16
== END 2017-07-14 14:59 | disposition home or self-care (01) | DRG 811 ==
LOC: NEPC 12:47 → EDBD 12:47 → NEDA 18:49 → NEDH 07-13 00:46 → HCIS 07-13 12:16
PROVIDERS: ADMIT Hospitalist; ATTEND Hospitalist
PROC: 30233N1 Transfusion of Nonautologous Red Blood Cells into Peripheral Vein, Percutaneous Approach (ICD-10-PCS; principal; 2017-07-12)
PROC: 0DB68ZX Excision of Stomach, Via Natural or Artificial Opening Endoscopic, Diagnostic (ICD-10-PCS; 2017-07-12)
PROC: 0W3P8ZZ Control Bleeding in Gastrointestinal Tract, Via Natural or Artificial Opening Endoscopic (ICD-10-PCS; 2017-07-12)
DX: D62 Acute posthemorrhagic anemia (principal); K26.4 Chronic or unspecified duodenal ulcer with hemorrhage; K92.1 Melena; I10 Essential (primary) hypertension; I95.1 Orthostatic hypotension; R00.0 Tachycardia, unspecified
CPT/HCPCS: 36430; 74177; 80053; 82550; 82552; 83690; 83880; 84484; 85014; 85018; 85025; 85610; 85730; 86850; 86900; 86901; 86920; 88305; 88312; 93005; 96361; 96374; C9113; J7030; J7050; J7120; P9016; Q9967